=== PATIENT | male | born 1955 | race Caucasian/White ===

== ENCOUNTER 2016-02-29 11:42 | Day surgery (SDC) | payer OTHER ==
[~2016-02-29] VITALS: Ht 182.9 cm; Wt 107.3 kg
[~2016-02-29 11:42] MED LIST: DOCU-159 PO; GLIP-95 PO; METO-407 PO; MTF1000T PO; PIOG45TA6 PO; RANI150T5 PO; RIVA20TA PO; SMV40T PO
[2016-02-29] MEDS ORDERED: LIDOCAINE 2% (SDV) 5 ML INJ ONE (12:48)
[2016-02-29] MEDS ORDERED: PROPOFOL 20 ML ONE (12:48)
[2016-02-29] MEDS ORDERED: LISI10TA2 PO (12:57)
[2016-02-29] MEDS ORDERED: AMLO1CAP15 PO (12:57)
[2016-02-29] MEDS ORDERED: GLIP2.5T3 PO (12:57)
[2016-02-29] MEDS ORDERED: RIVA1TAB PO (12:57)
[2016-02-29] MEDS ORDERED: MIDAZOLAM 1 MG/ML 2 ML INJ ONE (13:32)
[2016-02-29 13:36] VITALS: Ht 182.9 cm; Wt 107.3 kg
[2016-02-29 15:11] VITALS: BP 165/89; PULSE 69; RESP 16
--- NOTE | 2016-02-29 19:55 | GILP ---
DATE OF PROCEDURE: NAME OF PROCEDURES: Colonoscopy and biopsy. SURGEON: Declan Wilson MD PREOPERATIVE DIAGNOSIS: Positive occult blood in stool. POSTOPERATIVE DIAGNOSES: 1. Colonoscopy all the way to the cecum. 2. Two small colon polyps were removed using the biopsy forceps. 3. Poor prep in the right colon and cecal area making the exam somewhat suboptimal. 4. Internal hemorrhoids. INDICATION FOR THE PROCEDURE: Mr. Cosmo Hubbard is a 61-year-old male patient who was noted to have positive occult blood in stool. The patient was scheduled for colonoscopy for further evaluat ion. The procedure and possible complications were well explained to the patient. The patient understood and consented to the procedure. DESCRIPTION OF PROCEDURE: Under the influence of anesthesia, the colonoscope was carefully introduc ed in the rectum and, under direct vision, it was advanced all the way to the cecum. FINDINGS: The patient had poor prep with some scattered stool in the right colon and cecal area jocelynn ing the exam somewhat suboptimal. The patient was noted to have 2 small polyps and they were remove d using the biopsy forceps. He had internal hemorrhoids. He tolerated the procedure very well and there was no complication from the procedure. At the end o f the procedure, he was awake with stable vital signs and he was discharged home to the care of his family. IMPRESSION: 1. Colonoscopy all the way to the cecum. 2. Two small colon polyps were removed using the biopsy forceps. 3. Poor prep in the right colon and cecal area making the exam somewhat suboptimal. 4. Internal hemorrhoids. PLAN: 1. Await histopathology report. 2. Because of the presence of 2 polyps in the poor prep making the exam suboptimal, the patient lois l need next colonoscopy in 3 years. Dictated By: DECLAN DELGADILLO/MARISSA Conf#: [id number] DID#: [id number] CC: DECLAN WILSON MD;*EndCC*
== END 2016-02-29 15:59 | disposition home or self-care (01) ==
LOC: GIL 11:42
PROVIDERS: ATTEND Internal Medicine Gastroenterology
DX: K63.5 Polyp of colon (principal); K64.8 Other hemorrhoids; E11.9 Type 2 diabetes mellitus without complications; I10 Essential (primary) hypertension; E78.5 Hyperlipidemia, unspecified; Z86.718 Personal history of other venous thrombosis and embolism
CPT/HCPCS: 45380; 82962; 88305; J2250; Z7610